=== PATIENT | female | born 1995 | race Caucasian/White ===

== ENCOUNTER 2020-06-21 00:41 | Emergency (ER) | payer OTHER ==
[2020-06-21 03:06] LABS: HEMOGLOBIN 12.2 gm/dl (12.3-15.3); RED BLOOD COUNT 4.13 M/UL (4.00-5.10); WHITE BLOOD COUNT 9.3 K/UL (4.5-11.0)
[2020-06-21 03:25] LABS: BUN/CREATININE RATIO 15 (0-10)
[2020-06-21] MEDS ORDERED: IBUPROFEN600 MG PO (03:33)
== END 2020-06-21 03:50 | disposition home or self-care (01) ==
LOC: ER1 00:41
PROVIDERS: Internal Medicine
DX: J06.9 Acute upper respiratory infection, unspecified (principal); Z90.89 Acquired absence of other organs; Z88.0 Allergy status to penicillin
CPT/HCPCS: 80053; 81001; 85025; 99283